=== PATIENT | female | born 1995 | race Caucasian/White ===

== ENCOUNTER 2019-02-13 06:58 | Inpatient (IN) | payer BC ==
[2019-02-13] MEDS ORDERED: Misoprostol 25 MCG (1/4 of 100 MCG) Tab VAG ONE (07:11)
[2019-02-13] MEDS ORDERED: Sodium Chloride 0.9% 10 ML Syringe FLUSH PRN (08:38)
[2019-02-13] MEDS: Lactated Ringers 1,000 ML IV SCH ×3 (08:51→14:34)
--- NOTE | 2019-02-13 09:53 | PCM.PN ---
- General Info Date of Service: 02/13/19 Admission Dx/Problem (Free Text): This is a 23-year-old who is 39 weeks and 6/7 weeks EDC is 328/ 19. She's here for induction. She has a history of genital herpes but is on antiviral has no active lesions. Group B negative. - Patient Data Vitals - Most Recent: Last Vital Signs Temp 98.1 F 02/13/19 07:12 Pulse 82 02/13/19 08:21 Resp 20 02/13/19 07:12 BP 134/77 02/13/19 07:16 Pulse Ox 100 02/13/19 07:15 Weight - Most Recent: 170 lb 11.2 oz Med Orders - Current: Current Medications Oxytocin/Sodium Chloride (Pitocin In Ns 20 Units/1,000 Ml) 20 unit in 1,000 mls @ 6 mls/hr IV TITRATE BLANE; Protocol Last Titration: 02/13/19 08:55 Dose: 2 munits/min, 6 mls/hr Lactated Ringer's (Ringers, Lactated) 1,000 mls @ 125 mls/hr IV ASDIRECTED BLANE Last Admin: 02/13/19 08:51 Dose: 125 mls/hr Sodium Chloride (Saline Flush) 10 ml FLUSH ASDIRECTED PRN PRN Reason: Keep Vein Open Last Admin: 02/13/19 08:51 Dose: 10 ml - Exam General: Alert, Oriented, Cooperative (Female) Exam: Other (Cervix is 2/80/-3) - Problem List & Annotations (1) Elective induction of labor planned SNOMED Code(s): 280438682 Code(s): FXW8302 - Status: Acute Current Visit: Yes - Problem List Review Problem List Initiated/Reviewed/Updated: Yes - My Orders Last 24 Hours: My Active Orders 02/13/19 07:05 Admission Status [Patient Status] [ADT] Routine 02/13/19 07:12 Communication Order [RC] ASDIRECTED Communication Order [RC] ASDIRECTED Communication Order [RC] ASDIRECTED Communication Order [RC] ASDIRECTED Non Stress Test [RC] Click to Edit Notify Provider [RC] PRN Notify Provider [RC] STAT Vital Signs [RC] PER UNIT ROUTINE 02/13/19 07:15 Oxytocin/Normal Saline [Pitocin in NS 20 Units/1,000 ML] 20 unit in 1,000 ml IV TITRATE 02/13/19 08:38 Sodium Chloride 0.9% [Saline Flush] 10 ml FLUSH ASDIRECTED PRN Peripheral IV Insertion Adult [OM.PC] Routine 02/13/19 08:45 Lactated Ringers [Ringers, Lactated] 1,000 ml IV ASDIRECTED - Plan Plan:: See induction orders. Group B negative.
[2019-02-13] MEDS ORDERED: fentaNYL 100 MCG/2 ML SDV EPIDUR ONE (13:18)
[2019-02-13] MEDS ORDERED: INFUSION EPIDUR ONE (13:18)
[2019-02-13] MEDS ORDERED: ROPIVACAINE EPIDUR ONE (13:18)
--- NOTE | 2019-02-13 14:13 | PN ---
DATE SEEN: 02/13/2019 SUBJECTIVE: The patient is having contractions, on Pitocin. She just feels uncomfortable. OBJECTIVE: Cervix is 3+, 80, minus 2. ASSESSMENT: Induction, elective. Group B negative. PLAN: AROM clear and then vaginal delivery. /[id number] PE/MODL
[2019-02-13] MEDS ORDERED: fentaNYL 100 MCG/2 ML SDV IV ONE (14:15)
[2019-02-13] MEDS ORDERED: Morphine PF 10 MG/10 ML SDV EPIDUR ONE (14:15)
[2019-02-13] MEDS ORDERED: Scopolamine 1.5 MG Transdermal Patch ONE (14:18)
[2019-02-13] MEDS ORDERED: diphenhydrAMINE 50 MG/ML SDV IV PRN (14:59)
[2019-02-13] MEDS ORDERED: Naltrexone 50 MG Tab PO PRN (14:59)
[2019-02-13] MEDS ORDERED: Scopolamine 1.5 MG Transdermal Patch TOP ONE (14:59)
[2019-02-13] MEDS ORDERED: Nalbuphine 10 MG/1 ML Vial IVPUSH PRN (14:59)
[2019-02-13] MEDS ORDERED: Famotidine/Normal Saline 20 MG in Premix Bag 1 BAG IV PRN (14:59)
[2019-02-13] MEDS ORDERED: Ondansetron 4 MG/2 ML SDV IVPUSH PRN (14:59)
[2019-02-13] MEDS ORDERED: Naloxone 0.4 MG/ML SDV IVPUSH PRN (14:59)
[2019-02-13] MEDS ORDERED: ePHEDrine 50 MG/ML SDV IVPUSH PRN (14:59)
[2019-02-13] MEDS ORDERED: Promethazine 6.25 MG in Sodium Chloride 0.9% 50 ML IV PRN (14:59)
[2019-02-13] MEDS ORDERED: Promethazine 12.5 MG in Sodium Chloride 0.9% 50 ML IV PRN (14:59)
[2019-02-13] MEDS ORDERED: diphenhydrAMINE 50 MG/ML SDV IVPUSH PRN (14:59)
[2019-02-13] MEDS ORDERED: Lactated Ringers 500 ML IV SCH ×2 (15:00)
--- NOTE | 2019-02-13 17:15 | PCM.DEL ---
L & D Note - General Info Date of Service: 02/13/19 - Delivery Note Labor: Augmented by Oxytocin Cervical Ripening Method: Oxytocin Delivery Outcome: Livebirth Infant Delivery Method: Spontaneous Vaginal Delivery-Single Presentation: OA Nuchal Cord: None Anesthesia Type: Epidural Amniotic Fluid Description: Clear Episiotomy Type: None Laceration: None Placenta: Intact, Spontaneous Resuscitation Needed: No [place]: Suctioned Delivery Comments (Free Text/Narrative):: Baby delivers mail position. No nuchal cord. Blood loss less than 500, complications none. No urethral or vaginal tears - General Info Date of Service: 02/13/19 - Patient Data Vitals - Most Recent: Last Vital Signs Temp 98.1 F 02/13/19 07:12 Pulse 72 02/13/19 16:20 Resp 20 02/13/19 16:20 BP 168/125 H 02/13/19 16:20 Pulse Ox 100 02/13/19 16:20 Weight - Most Recent: 170 lb 11.2 oz I&O - Last 24 Hours: Intake & Output 02/13/19 02/13/19 02/13/19 06:59 14:59 22:59 Output Total 1150 Balance -1150 Med Orders - Current: Current Medications Diphenhydramine HCl (Benadryl) 25 mg IVPUSH ASDIRECTED PRN PRN Reason: EXTRAPYRAMIDAL SIDE EFFECTS Diphenhydramine HCl (Benadryl) 25 mg IV ASDIRECTED PRN PRN Reason: PRURITUS Ephedrine Sulfate (Ephedrine Sulfate) 0 mg IVPUSH ASDIRECTED PRN PRN Reason: Hypotension Oxytocin/Sodium Chloride (Pitocin In Ns 20 Units/1,000 Ml) 20 unit in 1,000 mls @ 6 mls/hr IV TITRATE BLANE; Protocol Last Titration: 02/13/19 14:14 Dose: 0 munits/min, 0 mls/hr Lactated Ringer's (Ringers, Lactated) 1,000 mls @ 125 mls/hr IV ASDIRECTED BLANE Last Infusion: 02/13/19 14:45 Dose: 125 mls/hr Famotidine 20 mg/ Premix 50 mls @ 100 mls/hr IV ONETIME PRN PRN Reason: PRURITIS Lactated Ringer's (Ringers, Lactated) 500 mls @ 999 mls/hr IV .SEECOMMENT BLANE Lactated Ringer's (Ringers, Lactated) 500 mls @ 999 mls/hr IV BOLUS BLANE Promethazine HCl 6.25 mg/ (Sodium Chloride) 50.25 mls @ 200 mls/hr IV Q4H PRN PRN Reason: Nausea/Vomiting Promethazine HCl 12.5 mg/ (Sodium Chloride) 50.5 mls @ 200 mls/hr IV Q4H PRN PRN Reason: Nausea/Vomiting Miscellaneous Information (Remove Patch) 1 ea TRDERM ONETIME ONE Stop: 02/14/19 15:01 Nalbuphine HCl (Nubain) 10 mg IVPUSH Q1H PRN PRN Reason: PRURITUS Naloxone HCl (Narcan) 0.1 mg IVPUSH ASDIRECTED PRN PRN Reason: Respiratory Depression Naltrexone HCl (Naltrexone) 25 mg PO ASDIRECTED PRN PRN Reason: REVERSAL Ondansetron HCl (Zofran) 4 mg IVPUSH Q4H PRN PRN Reason: Nausea/Vomiting Sodium Chloride (Saline Flush) 10 ml FLUSH ASDIRECTED PRN PRN Reason: Keep Vein Open Last Admin: 02/13/19 08:51 Dose: 10 ml Discontinued Medications Scopolamine (Transderm-Scop) Confirm Administered Dose 1.5 mg .ROUTE .STK-MED ONE Stop: 02/13/19 14:19 Last Admin: 02/13/19 14:33 Dose: 1.5 mg Scopolamine (Transderm-Scop) 1.5 mg TOP ONETIME ONE Stop: 02/13/19 15:00 Last Admin: 02/13/19 16:00 Dose: Not Given - Exam General: Alert, Oriented Lungs: Normal Respiratory Effort (Female) Exam: Vaginal Bleeding Back Exam: Normal Inspection, Full Range of Motion Psy/Mental Status: Alert, Normal Affect - Problem List & Annotations (1) Elective induction of labor planned SNOMED Code(s): 723321165 Code(s): NID9283 - Status: Acute Current Visit: Yes (2) Vaginal delivery SNOMED Code(s): 002075111 Code(s): O80 - ENCOUNTER FOR FULL-TERM UNCOMPLICATED DELIVERY Status: Acute Current Visit: No - Problem List Review Problem List Initiated/Reviewed/Updated: Yes - My Orders Last 24 Hours: My Active Orders 02/13/19 07:05 Admission Status [Patient Status] [ADT] Routine 02/13/19 07:12 Communication Order [RC] ASDIRECTED Communication Order [RC] ASDIRECTED Communication Order [RC] ASDIRECTED Communication Order [RC] ASDIRECTED Notify Provider [RC] PRN Notify Provider [RC] STAT Vital Signs [RC] PER UNIT ROUTINE 02/13/19 07:15 Oxytocin/Normal Saline [Pitocin in NS 20 Units/1,000 ML] 20 unit in 1,000 ml IV TITRATE 02/13/19 08:38 Sodium Chloride 0.9% [Saline Flush] 10 ml FLUSH ASDIRECTED PRN Peripheral IV Insertion Adult [OM.PC] Routine 02/13/19 08:45 Lactated Ringers [Ringers, Lactated] 1,000 ml IV ASDIRECTED 02/13/19 10:35 Epidural Catheter Management [OM.PC] Routine 02/13/19 12:37 Admission Status [Patient Status] [ADT] Routine - Plan Plan:: 1. Admit to OB and nursery 2. Full code 3. Diet regular 4. Up ad gonzalo. 5. H/H in the a.m. 6. Normal orders. See orders.
[2019-02-13] MEDS ORDERED: Acetaminophen/Codeine 300-30 MG Tab PO PRN (17:17)
[2019-02-14] MEDS: Ibuprofen 600 MG Tab PO PRN ×2 (06:46→18:50)
--- NOTE | 2019-02-14 09:00 | PCM.PNPP ---
- General Info Date of Service: 02/14/19 Subjective Update: Patient has no concerns. She says her perineum is feeling pretty well in the burning is going away. Use the ibuprofen and that's helping. Vaginal bleeding is decreased. She has no abdominal pain, fevers, chills or leg swelling Functional Status: Reports: Pain Controlled - Patient Data Vital Signs - Most Recent: Last Vital Signs Temp 98.5 F 02/14/19 01:00 Pulse 56 L 02/14/19 01:00 Resp 16 02/14/19 01:00 BP 109/61 02/14/19 01:00 Pulse Ox 97 02/14/19 01:00 Weight - Most Recent: 170 lb 11.2 oz I&O - Last 24 Hours: Intake & Output 02/13/19 02/14/19 02/14/19 22:59 06:59 14:59 Intake Total 3693 Balance 3693 Lab Results - Last 24 Hours: Laboratory Results - last 24 hr 02/14/19 Range/Units 06:15 Hgb 8.7 L (11.5-15.5) g/dL Hct 26.6 L (30.0-51.3) % Med Orders - Current: Current Medications Acetaminophen/Codeine Phosphate (Tylenol With Codeine No.3 300mg/30mg) 1 tab PO Q4H PRN PRN Reason: Pain (moderate 4-6) Ibuprofen (Motrin) 600 mg PO Q6H PRN PRN Reason: Pain Last Admin: 02/14/19 06:46 Dose: 600 mg Polysaccharide Iron Complex (Ferrex 150) 150 mg PO BID BLANE Multivit/Folic Acid/Iron (-U) 1 each PO DAILY BLANE Discontinued Medications Diphenhydramine HCl (Benadryl) 25 mg IVPUSH ASDIRECTED PRN PRN Reason: EXTRAPYRAMIDAL SIDE EFFECTS Diphenhydramine HCl (Benadryl) 25 mg IV ASDIRECTED PRN PRN Reason: PRURITUS Ephedrine Sulfate (Ephedrine Sulfate) 0 mg IVPUSH ASDIRECTED PRN PRN Reason: Hypotension Oxytocin/Sodium Chloride (Pitocin In Ns 20 Units/1,000 Ml) 20 unit in 1,000 mls @ 6 mls/hr IV TITRATE BLANE; Protocol Last Titration: 02/13/19 16:30 Dose: 10 munits/min, 30 mls/hr Lactated Ringer's (Ringers, Lactated) 1,000 mls @ 125 mls/hr IV ASDIRECTED BLANE Last Infusion: 02/13/19 14:45 Dose: 125 mls/hr Famotidine 20 mg/ Premix 50 mls @ 100 mls/hr IV ONETIME PRN PRN Reason: PRURITIS Lactated Ringer's (Ringers, Lactated) 500 mls @ 999 mls/hr IV .SEECOMMENT BLANE Lactated Ringer's (Ringers, Lactated) 500 mls @ 999 mls/hr IV BOLUS BLANE Promethazine HCl 6.25 mg/ (Sodium Chloride) 50.25 mls @ 200 mls/hr IV Q4H PRN PRN Reason: Nausea/Vomiting Promethazine HCl 12.5 mg/ (Sodium Chloride) 50.5 mls @ 200 mls/hr IV Q4H PRN PRN Reason: Nausea/Vomiting Miscellaneous Information (Remove Patch) 1 ea TRDERM ONETIME ONE Stop: 02/14/19 15:01 Nalbuphine HCl (Nubain) 10 mg IVPUSH Q1H PRN PRN Reason: PRURITUS Naloxone HCl (Narcan) 0.1 mg IVPUSH ASDIRECTED PRN PRN Reason: Respiratory Depression Naltrexone HCl (Naltrexone) 25 mg PO ASDIRECTED PRN PRN Reason: REVERSAL Ondansetron HCl (Zofran) 4 mg IVPUSH Q4H PRN PRN Reason: Nausea/Vomiting Scopolamine (Transderm-Scop) Confirm Administered Dose 1.5 mg .ROUTE .STK-MED ONE Stop: 02/13/19 14:19 Last Admin: 02/13/19 14:33 Dose: 1.5 mg Scopolamine (Transderm-Scop) 1.5 mg TOP ONETIME ONE Stop: 02/13/19 15:00 Last Admin: 02/13/19 16:00 Dose: Not Given Sodium Chloride (Saline Flush) 10 ml FLUSH ASDIRECTED PRN PRN Reason: Keep Vein Open Last Admin: 02/13/19 08:51 Dose: 10 ml - Interaction Disposition, : [place] in Room with Family Feeding: Breastfed Infant; Nursed Well Support Person: - Recovery Exam Fundal Tone: Firm Fundal Level: At Umbilicus Fundal Placement: Midline Lochia Amount: Small, Moderate Lochia Color: Rubra/Red Perineum Description: Intact, Minimal Bruising/Swelling Episiotomy/Laceration: None Bladder Status: Voiding Urinary Elimination: Voided - Exam General: Alert, Oriented, Cooperative GI/Abdominal Exam: Other (Fundus firm) Extremities: No Pedal Edema - Problem List & Annotations (1) Elective induction of labor planned SNOMED Code(s): 839799413 Code(s): GPL9679 - Status: Acute Current Visit: Yes (2) Vaginal delivery SNOMED Code(s): 850920412 Code(s): O80 - ENCOUNTER FOR FULL-TERM UNCOMPLICATED DELIVERY Status: Acute Current Visit: No (3) Anemia SNOMED Code(s): 532267420 Code(s): D64.9 - ANEMIA, UNSPECIFIED Status: Acute Current Visit: Yes Qualifiers: Anemia type: iron deficiency - Problem List Review Problem List Initiated/Reviewed/Updated: Yes - My Orders Last 24 Hours: My Active Orders 02/13/19 17:17 Patient Status [ADT] Routine May Shower [RC] ASDIRECTED Up ad [place] [RC] ASDIRECTED Vital Signs [RC] PFP Acetaminophen/Codeine [Tylenol with Codeine No.3 300MG/30MG] 1 tab PO Q4H PRN Ibuprofen [Motrin] 600 mg PO Q6H PRN Assess Lochia [WOMSER] Per Unit Routine Assess Uterine Involution [WOMSER] Per Unit Routine Breast Pump [WOMSER] Per Unit Routine Resuscitation Status Routine 02/13/19 17:18 Ice Therapy [OM.PC] Per Unit Routine Perineal Care [OM.PC] Per Unit Routine Peripheral IV Discontinue [OM.PC] Routine Sitz Bath [OM.PC] Per Unit Routine 02/13/19 Dinner Regular Diet [DIET] 02/14/19 09:00 Iron Polysaccharides Complex [Ferrex 150] 150 mg PO BID Vit/FA/Fe Fumarate [-U] 1 each PO DAILY - Plan Plan:: 1. Start back on her iron twice a day today. 2. Continue current care.
[2019-02-14] MEDS: Prenatal Multivitamin with Calcium/Folic Acid/Fe Fumarate Cap PO SCH (10:03)
[2019-02-14] MEDS: Iron Polysaccharides Complex 150 MG Cap PO SCH ×2 (10:03→22:55)
[2019-02-14] MEDS ORDERED: Measles, Mumps & Rubella Vaccine 0.5 ML SDV SUBCUT ONE (10:18)
[2019-02-15] MEDS: Ibuprofen 600 MG Tab PO PRN (04:10)
[2019-02-15 04:23] VITALS: BP 110/68
--- NOTE | 2019-02-15 08:08 | PCM.PNPP ---
- General Info Date of Service: 02/15/19 Admission Dx/Problem (Free Text): Patient states her bleeding is decreasing and they little pain in her perineum. She is a little pain left lower quadrant. No fevers, chills or leg swelling. - Patient Data Vital Signs - Most Recent: Last Vital Signs Temp 98.1 F 02/15/19 04:10 Pulse 65 02/15/19 04:10 Resp 16 02/15/19 04:10 BP 110/68 02/15/19 04:10 Pulse Ox 99 02/15/19 04:10 Weight - Most Recent: 170 lb 11.2 oz Med Orders - Current: Current Medications Acetaminophen/Codeine Phosphate (Tylenol With Codeine No.3 300mg/30mg) 1 tab PO Q4H PRN PRN Reason: Pain (moderate 4-6) Ibuprofen (Motrin) 600 mg PO Q6H PRN PRN Reason: Pain Last Admin: 02/15/19 04:10 Dose: 600 mg Polysaccharide Iron Complex (Ferrex 150) 150 mg PO BID BLANE Last Admin: 02/14/19 22:55 Dose: 150 mg Multivit/Folic Acid/Iron (-U) 1 each PO DAILY BLANE Last Admin: 02/14/19 10:03 Dose: 1 each Discontinued Medications Diphenhydramine HCl (Benadryl) 25 mg IVPUSH ASDIRECTED PRN PRN Reason: EXTRAPYRAMIDAL SIDE EFFECTS Diphenhydramine HCl (Benadryl) 25 mg IV ASDIRECTED PRN PRN Reason: PRURITUS Ephedrine Sulfate (Ephedrine Sulfate) 0 mg IVPUSH ASDIRECTED PRN PRN Reason: Hypotension Oxytocin/Sodium Chloride (Pitocin In Ns 20 Units/1,000 Ml) 20 unit in 1,000 mls @ 6 mls/hr IV TITRATE BLANE; Protocol Last Titration: 02/13/19 16:30 Dose: 10 munits/min, 30 mls/hr Lactated Ringer's (Ringers, Lactated) 1,000 mls @ 125 mls/hr IV ASDIRECTED BLANE Last Infusion: 02/13/19 14:45 Dose: 125 mls/hr Famotidine 20 mg/ Premix 50 mls @ 100 mls/hr IV ONETIME PRN PRN Reason: PRURITIS Lactated Ringer's (Ringers, Lactated) 500 mls @ 999 mls/hr IV .SEECOMMENT BLANE Lactated Ringer's (Ringers, Lactated) 500 mls @ 999 mls/hr IV BOLUS BLANE Promethazine HCl 6.25 mg/ (Sodium Chloride) 50.25 mls @ 200 mls/hr IV Q4H PRN PRN Reason: Nausea/Vomiting Promethazine HCl 12.5 mg/ (Sodium Chloride) 50.5 mls @ 200 mls/hr IV Q4H PRN PRN Reason: Nausea/Vomiting Measles/Mumps/Rubella Vaccine Live (M-M-R Ii Vaccine) 0.5 ml SUBCUT .ONCE ONE Stop: 02/14/19 10:19 Last Admin: 02/14/19 10:44 Dose: 0.5 ml Miscellaneous Information (Remove Patch) 1 ea TRDERM ONETIME ONE Stop: 02/14/19 15:01 Last Admin: 02/14/19 15:35 Dose: 1 ea Nalbuphine HCl (Nubain) 10 mg IVPUSH Q1H PRN PRN Reason: PRURITUS Naloxone HCl (Narcan) 0.1 mg IVPUSH ASDIRECTED PRN PRN Reason: Respiratory Depression Naltrexone HCl (Naltrexone) 25 mg PO ASDIRECTED PRN PRN Reason: REVERSAL Ondansetron HCl (Zofran) 4 mg IVPUSH Q4H PRN PRN Reason: Nausea/Vomiting Scopolamine (Transderm-Scop) Confirm Administered Dose 1.5 mg .ROUTE .STK-MED ONE Stop: 02/13/19 14:19 Last Admin: 02/13/19 14:33 Dose: 1.5 mg Scopolamine (Transderm-Scop) 1.5 mg TOP ONETIME ONE Stop: 02/13/19 15:00 Last Admin: 02/13/19 16:00 Dose: Not Given Sodium Chloride (Saline Flush) 10 ml FLUSH ASDIRECTED PRN PRN Reason: Keep Vein Open Last Admin: 02/13/19 08:51 Dose: 10 ml - Interaction Infant Disposition, : [place] in Room with Family Feeding: Breastfed Infant; Nursed Well Support Person: - Recovery Exam Fundal Tone: Firm Fundal Level: 3 Fingerbreadths Below Umbilicus Fundal Placement: Midline Lochia Amount: Small Lochia Color: Rubra/Red Perineum Description: Intact, Minimal Bruising/Swelling Episiotomy/Laceration: None Bladder Status: Voiding Urinary Elimination: Voided - Exam General: Alert, Oriented, Cooperative Lungs: Normal Respiratory Effort GI/Abdominal Exam: Normal Bowel Sounds, Soft, Non-Tender, No Distention, Other ( Fundus firm) Extremities: No Pedal Edema - Problem List & Annotations (1) Elective induction of labor planned SNOMED Code(s): 460963299 Code(s): HHZ4828 - Status: Acute Current Visit: Yes (2) Vaginal delivery SNOMED Code(s): 577369308 Code(s): O80 - ENCOUNTER FOR FULL-TERM UNCOMPLICATED DELIVERY Status: Acute Current Visit: No (3) Anemia SNOMED Code(s): 024379858 Code(s): D64.9 - ANEMIA, UNSPECIFIED Status: Acute Current Visit: Yes Qualifiers: Anemia type: iron deficiency - Problem List Review Problem List Initiated/Reviewed/Updated: Yes - My Orders Last 24 Hours: My Active Orders 02/14/19 09:00 Iron Polysaccharides Complex [Ferrex 150] 150 mg PO BID Vit/FA/Fe Fumarate [-U] 1 each PO DAILY 02/14/19 10:19 Vaccines to be Administered [RC] PER UNIT ROUTINE 02/15/19 08:06 Ready for Discharge [RC] PER UNIT ROUTINE - Plan Plan:: Charge to home on vitamins iron twice a day. Recheck in 6 weeks for care.
--- NOTE | 2019-02-15 08:10 | PCM.DCSUM1 ---
Discharge Summary - Hospital Course Free Text/Narrative:: Hospital course-patient had been on Valtrex prevent herpes and there is no flares we stopped the Valtrex after she delivered. Patient status hemoglobin on day 1 was 8.7. It was low before (so I increase her iron to twice a day. She did well I will discomfort in the left lower abdomen in the was found to be benign. Her bleeding and perineum healing nicely. She had no lacerations of . We'll discharge her home on her iron twice a day, vitamins and [id number] iron. She'll follow-up in 6 weeks for care did educate her on the signs of depression today. Brief History: This a 23-year-old was 39 weeks and 5/7 days comes in for elective induction. She was given Pitocin and later had AROM. Delivered a healthy baby male. See delivery note. Diagnosis: Stroke: No - Discharge Data Discharge Date: 02/15/19 Discharge Disposition: Home, Self-Care 01 Condition: Good - Discharge Diagnosis/Problem(s) (1) Elective induction of labor planned SNOMED Code(s): 419990577 ICD Code: [id number] - Status: Acute Current Visit: Yes (2) Vaginal delivery SNOMED Code(s): 254869003 ICD Code: O80 - ENCOUNTER FOR FULL-TERM UNCOMPLICATED DELIVERY Status: Acute Current Visit: No (3) Anemia SNOMED Code(s): 973120515 ICD Code: D64.9 - ANEMIA, UNSPECIFIED Status: Acute Current Visit: Yes Qualifiers: Anemia type: iron deficiency - Patient Instructions Diet: Regular Diet as Tolerated Activity: As Tolerated Driving: May Drive Today Showering/Bathing: May Shower Notify Provider of: Fever, Increased Pain, Swelling and Redness, Drainage, Nausea and/or Vomiting Other/Special Instructions: 1. Recheck in 6 weeks for care. 2. Over- the-counter ibuprofen for pain. 3. CBC with the appointment at 6 weeks. This is regarding anemia. - Discharge Plan Home Medications: Home Meds Iron Polysaccharides Complex [Ferrex 150] 150 mg PO BID cap 02/15/19 [Rx] Patient Handouts: and Inducing , Exclusive , Mastitis, Gsav-ab-Taco, and Mastitis, Baby Blues, Thrush and , Labor Induction, Home Care Instructions for Mom, Vaginal Delivery, Care After, Breast Engorgement, Care After Vaginal Delivery, Hand Washing, Storing Breast Milk - Discharge Summary/Plan Comment DC Time >30 min.: No - Patient Data Vitals - Most Recent: Last Vital Signs Temp 98.1 F 02/15/19 04:10 Pulse 65 02/15/19 04:10 Resp 16 02/15/19 04:10 BP 110/68 02/15/19 04:10 Pulse Ox 99 02/15/19 04:10 Weight - Most Recent: 170 lb 11.2 oz Med Orders - Current: Current Medications Acetaminophen/Codeine Phosphate (Tylenol With Codeine No.3 300mg/30mg) 1 tab PO Q4H PRN PRN Reason: Pain (moderate 4-6) Ibuprofen (Motrin) 600 mg PO Q6H PRN PRN Reason: Pain Last Admin: 02/15/19 04:10 Dose: 600 mg Polysaccharide Iron Complex (Ferrex 150) 150 mg PO BID BLANE Last Admin: 02/14/19 22:55 Dose: 150 mg Multivit/Folic Acid/Iron (-U) 1 each PO DAILY BLANE Last Admin: 02/14/19 10:03 Dose: 1 each Discontinued Medications Diphenhydramine HCl (Benadryl) 25 mg IVPUSH ASDIRECTED PRN PRN Reason: EXTRAPYRAMIDAL SIDE EFFECTS Diphenhydramine HCl (Benadryl) 25 mg IV ASDIRECTED PRN PRN Reason: PRURITUS Ephedrine Sulfate (Ephedrine Sulfate) 0 mg IVPUSH ASDIRECTED PRN PRN Reason: Hypotension Oxytocin/Sodium Chloride (Pitocin In Ns 20 Units/1,000 Ml) 20 unit in 1,000 mls @ 6 mls/hr IV TITRATE BLANE; Protocol Last Titration: 02/13/19 16:30 Dose: 10 munits/min, 30 mls/hr Lactated Ringer's (Ringers, Lactated) 1,000 mls @ 125 mls/hr IV ASDIRECTED BLANE Last Infusion: 02/13/19 14:45 Dose: 125 mls/hr Famotidine 20 mg/ Premix 50 mls @ 100 mls/hr IV ONETIME PRN PRN Reason: PRURITIS Lactated Ringer's (Ringers, Lactated) 500 mls @ 999 mls/hr IV .SEECOMMENT BLANE Lactated Ringer's (Ringers, Lactated) 500 mls @ 999 mls/hr IV BOLUS BLANE Promethazine HCl 6.25 mg/ (Sodium Chloride) 50.25 mls @ 200 mls/hr IV Q4H PRN PRN Reason: Nausea/Vomiting Promethazine HCl 12.5 mg/ (Sodium Chloride) 50.5 mls @ 200 mls/hr IV Q4H PRN PRN Reason: Nausea/Vomiting Measles/Mumps/Rubella Vaccine Live (M-M-R Ii Vaccine) 0.5 ml SUBCUT .ONCE ONE Stop: 02/14/19 10:19 Last Admin: 02/14/19 10:44 Dose: 0.5 ml Miscellaneous Information (Remove Patch) 1 ea TRDERM ONETIME ONE Stop: 02/14/19 15:01 Last Admin: 02/14/19 15:35 Dose: 1 ea Nalbuphine HCl (Nubain) 10 mg IVPUSH Q1H PRN PRN Reason: PRURITUS Naloxone HCl (Narcan) 0.1 mg IVPUSH ASDIRECTED PRN PRN Reason: Respiratory Depression Naltrexone HCl (Naltrexone) 25 mg PO ASDIRECTED PRN PRN Reason: REVERSAL Ondansetron HCl (Zofran) 4 mg IVPUSH Q4H PRN PRN Reason: Nausea/Vomiting Scopolamine (Transderm-Scop) Confirm Administered Dose 1.5 mg .ROUTE .STK-MED ONE Stop: 02/13/19 14:19 Last Admin: 02/13/19 14:33 Dose: 1.5 mg Scopolamine (Transderm-Scop) 1.5 mg TOP ONETIME ONE Stop: 02/13/19 15:00 Last Admin: 02/13/19 16:00 Dose: Not Given Sodium Chloride (Saline Flush) 10 ml FLUSH ASDIRECTED PRN PRN Reason: Keep Vein Open Last Admin: 02/13/19 08:51 Dose: 10 ml
[2019-02-15] MEDS: Iron Polysaccharides Complex 150 MG Cap PO SCH (09:40)
[2019-02-15] MEDS: Prenatal Multivitamin with Calcium/Folic Acid/Fe Fumarate Cap PO SCH (09:40)
== END 2019-02-15 10:35 | disposition home or self-care (01) | DRG 560 ==
LOC: FB.OB 06:58 → EDSTATUS 07:09 → FB.OB 12:37 → OBSVTOIN 12:37
PROVIDERS: ADMIT Family Medicine; ATTEND Family Medicine
PROC: 10E0XZZ Delivery of Products of Conception, External Approach (ICD-10-PCS; principal; 2019-02-13)
PROC: 10907ZC Drainage of Amniotic Fluid, Therapeutic from Products of Conception, Via Natural or Artificial Opening (ICD-10-PCS; 2019-02-13)
PROC: 3E033VJ Introduction of Other Hormone into Peripheral Vein, Percutaneous Approach (ICD-10-PCS; 2019-02-13)
DX: O99.02 Anemia complicating childbirth (principal); O98.32 Other infections with a predominantly sexual mode of transmission complicating childbirth; Z3A.39 39 weeks gestation of pregnancy; Z37.0 Single live birth; A60.00 Herpesviral infection of urogenital system, unspecified
CPT/HCPCS: 36415; 59409; 85014; 85018; 90471; 90707; A9270-GY; J2270; J2590; J2795; J3010; J3490; J7120

== ENCOUNTER 2022-03-31 06:16 | Day surgery (SDC) | payer BC ==
[~2022-03-31 06:16] MED LIST: Lactated Ringers 1,000 ML IV SCH; Sodium Chloride 0.9% 10 ML Syringe FLUSH PRN
[2022-03-31] MEDS ORDERED: Propofol 200 MG/20 ML SDV IV ONE (06:17)
[2022-03-31 08:37] VITALS: BP 118/67; PULSE 54
== END 2022-04-01 08:33 | disposition home or self-care (01) ==
LOC: FB.SDS 06:16
PROVIDERS: ATTEND Surgery
DX: K29.80 Duodenitis without bleeding (principal); E80.6 Other disorders of bilirubin metabolism; F32.A Depression, unspecified; F90.9 Attention-deficit hyperactivity disorder, unspecified type; Z79.899 Other long term (current) drug therapy
CPT/HCPCS: 00731-QZ; 81025; 88305; J2704; J7120

== ENCOUNTER 2022-07-23 09:10 | Emergency (ER) | payer BC ==
[2022-07-23 16:37] VITALS: BP 137/87; PULSE 62
== END 2022-07-23 10:33 | disposition home or self-care (01) ==
LOC: FB.ED 09:10
DX: S16.1XXA Strain of muscle, fascia and tendon at neck level, initial encounter (principal); S00.83XA Contusion of other part of head, initial encounter; R55 Syncope and collapse; W18.09XA Striking against other object with subsequent fall, initial encounter
CPT/HCPCS: 72040; 99283